=== PATIENT | male | born 1975 | race Caucasian/White ===

== ENCOUNTER 2018-07-22 13:52 | Emergency (ER) | payer OTHER ==
[~2018-07-22] VITALS: Ht 175.3 cm; Wt 120.2 kg
[~2018-07-22 13:52] MED LIST: CARV3.122 PO; HYDR25TA9 PO; LISI-130 PO; LISI30TA4 PO
[2018-07-22 15:05] VITALS: BP 168/111
[2018-07-22] MEDS ORDERED: METH4TAB2 PO (15:23)
[2018-07-22] MEDS ORDERED: CYCL10TA2 PO (15:23)
[2018-07-22] MEDS ORDERED: DICL50TA4 PO (15:23)
--- NOTE | 2018-07-22 15:24 | PHYS DOC ---
Past Medical History Past Medical History: Hypertension Past Surgical History: Other Additional Past Surgical Histo: Tumor removed form L)chest. Alcohol Use: None Drug Use: None Adult General Chief Complaint Chief Complaint: BACK PAIN OR INJURY HPI HPI Patient is a 43 year old male with history of hypertension who presents today complaining of 7 out of 10 left low back pain radiating to the left lower extremity that began yesterday. He states he was helping carrying a door when the person who was carrying the door with him late go, he states he twisted his back in the process. Patient denies falling. Denies any loss of bowel bladder function, denies any numbness or tingling to bilateral lower extremities. Review of Systems Review of Systems Constitutional: Denies fever or chills [] GI: Denies abdominal pain, nausea, vomiting, bloody stools or diarrhea [] : Denies dysuria or hematuria [] Musculoskeletal: Reports left low back pain radiating to the left lower extremity Integument: Denies rash or skin lesions [] Neurologic: Denies headache, focal weakness or sensory changes [] All other systems were reviewed and found to be within normal limits, except as documented in this note. Current Medications Current Medications Current Medications Medications (Trade) Dose Ordered Sig/Jennifer Start Time Stop Time Status Last Admin Dose Admin Dexamethasone Sodium Phosphate (Decadron) 10 mg 1X ONCE 07/22/18 15:15 07/22/18 15:17 DC 07/22/18 15:35 10 MG Ketorolac Tromethamine (Toradol Im) 60 mg 1X ONCE 07/22/18 15:15 07/22/18 15:17 DC 07/22/18 15:34 60 MG Allergies Allergies Allergies Coded Allergies Type Severity Reaction Last Updated Verified Penicillins Allergy Intermediate Rash 11/26/16 Yes Physical Exam Physical Exam Constitutional: Well developed, well nourished, no acute distress, non-toxic appearance. [] Abdomen: Bowel sounds normal, soft, no tenderness, no masses, no pulsatile masses. [] Skin: Warm, dry, no erythema, no rash. [] Back: Diffuse paraspinal muscle tenderness the left lumbar spine, no midline lumbar spine tenderness, positive straight leg raise left side, no CVA tenderness. [] Extremities: No tenderness, no cyanosis, no clubbing, ROM intact, no edema. [] Neurologic: Alert and oriented X 3, normal motor function, normal sensory function, no focal deficits noted. [] Psychologic: Affect normal, judgement normal, mood normal. [] Current Patient Data Vital Signs Vital Signs Date Time Temp Pulse Resp B/P (MAP) Pulse Ox O2 Delivery O2 Flow Rate FiO2 07/22/18 15:05 97.8 89 168/111 (130) 96 Room Air 97.8 EKG EKG [] Radiology/Procedures Radiology/Procedures [] Course & Med Decision Making Course & Med Decision Making Pertinent Labs and Imaging studies reviewed. (See chart for details) This is a 43-year-old male patient presenting to the ED today with muscle strain that occurred yesterday while lifting a door. Discussed with patient benefits and risk of the lumbar spine x-rays. We both agreed he does not need any imaging today. Discharged with diclofenac, Flexeril and Medrol Dosepak. Follow-up with PCP in 1-2 weeks. Blood pressure was 168/111, patient states he has history of hypertension and took his medications this morning including lisinopril 40 mg and Norvasc. He does not have any cardiac or neurological symptoms. Recommended he rechecks his blood pressure when he gets at home. He' ll be given pain medicines in the Ed and blood pressure will be rechecked in the ED. Patient has no cauda equina syndrome symptoms. Will be discharged to follow-up with the PCP. Staff Physician Addendum: I was working in the ER during the course of this patient's visit. I was available for consultation as needed, but I was not directly involved in the care of this patient. Dragon Disclaimer Dragon Disclaimer This electronic medical record was generated, in whole or in part, using a voice recognition dictation system. Departure Departure Impression: Primary Impression: Acute lumbosacral myofascial strain Additional Impression: Hypertension Disposition: HOME, SELF-CARE Condition: STABLE Referrals: SURESH BLAIR MD (PCP) Follow-up with your doctor in one week Patient Instructions: Hypertension, Lumbosacral Strain Additional Instructions: You were evaluated in the emergency room for muscle strain. Please take the prescribed medications as ordered. Do not drive or operate machinery on the cyclobenzaprine. Follow-up with your doctor in 1-2 weeks. Your blood pressure was also high. Ensure you are taking your medicines and follow-up with your doctor. Scripts Diclofenac Sodium (DICLOFENAC SODIUM) 50 Mg Tablet.dr 1 TAB PO BID, #20 TAB 0 Refills Prov: JENNIFERSTEVEN SAUNDERS 07/22/18 Cyclobenzaprine Hcl (CYCLOBENZAPRINE HCL) 10 Mg Tablet 1 TAB PO TID, #30 TAB Prov: BENIGNOYayaSTEVEN APRN 07/22/18 Methylprednisolone (MEDROL) 4 Mg Tab.ds.pk 1 PKG PO UD, #1 PKG Prov: STEVEN RODRIUGEZ APRN 07/22/18 Problem Qualifiers Primary Impression: Acute lumbosacral myofascial strain Encounter type: initial encounter Qualified Codes: S39.012A - Strain of muscle, fascia and tendon of lower back, initial encounter Additional Impression: Hypertension Hypertension type: unspecified Qualified Codes: I10 - Essential (primary) hypertension STEVEN RODRIGUEZ APRN Jul 22, 2018 15:24 AURORA ADAMSON MD Jul 22, 2018 16:30
[2018-07-22] MEDS: KETOROLAC 60 MG/2 ML INJ. IM ONE (15:34)
[2018-07-22] MEDS: DEXAMETHASONE SOD PHOS 20 MG/5 ML VIAL. IM ONE (15:35)
== END 2018-07-22 15:55 | disposition home or self-care (01) ==
LOC: ER 13:52
DX: S39.012A Strain of muscle, fascia and tendon of lower back, initial encounter (principal); I10 Essential (primary) hypertension; Z88.0 Allergy status to penicillin; X50.9XXA Other and unspecified overexertion or strenuous movements or postures, initial encounter; Y93.89 Activity, other specified; Y92.89 Other specified places as the place of occurrence of the external cause; Y99.8 Other external cause status
CPT/HCPCS: 96372; 99284; J1100; J1885

== ENCOUNTER 2019-04-09 10:15 | Emergency (ER) | payer BC, OTHER ==
[~2019-04-09] VITALS: Ht 175.3 cm; Wt 113.4 kg
[~2019-04-09 10:15] MED LIST changes: +CARV3.1210 PO; -CARV3.122 PO; +CYCL10TA2 PO; +DICL50TA4 PO; +HYDR-2145 PO; -HYDR25TA9 PO; +METH4TAB2 PO
--- NOTE | 2019-04-09 11:11 | PHYS DOC ---
Past Medical History Past Medical History: Hypertension Past Surgical History: Other Additional Past Surgical Histo: Tumor removed form L)chest. Alcohol Use: None Drug Use: None Adult General Chief Complaint Chief Complaint: CHEST PAIN HPI HPI Patient is a 43 year old male who presents with complaining of chest pain. Patient complaining of nonexertional substernal pressure pain with radiation to left shoulder that started about 2 hours prior to arrival while he was sitting at his work as a constant pain and associated with shortness of breath without nausea, dizziness, palpitation, focal neuro deficit. Patient stated the pain was 5/10 and without taking any medication decreased to 4/10. Patient states he had episodes of the same pain 2 years and 1 year ago and was admitted at Hospital w ith negative workup. Patient has history of hypertension and family history of coronary artery disease without other cardiac risk factors. Review of Systems Review of Systems Constitutional: Denies fever or chills [] Eyes: Denies change in visual acuity, redness, or eye pain [] HENT: Denies nasal congestion or sore throat [] Respiratory: Denies cough, reports shortness of breath [] Cardiovascular: No additional information not addressed in HPI [] GI: Denies abdominal pain, nausea, vomiting, bloody stools or diarrhea [] : Denies dysuria or hematuria [] Musculoskeletal: Denies back pain or joint pain [] Integument: Denies rash or skin lesions [] Neurologic: Denies headache, focal weakness or sensory changes [] Endocrine: Denies polyuria or polydipsia [] All other systems were reviewed and found to be within normal limits, except as documented in this note. Current Medications Current Medications Current Medications Medications (Trade) Dose Ordered Sig/Jennifer Start Time Stop Time Status Last Admin Dose Admin Aspirin (Children'S Aspirin) 324 mg 1X ONCE 04/09/19 11:15 04/09/19 11:16 DC 04/09/19 11:38 324 MG Nitroglycerin (Nitrostat) 0.4 mg PRN Q5MIN PRN 04/09/19 11:15 04/10/19 11:14 04/09/19 11:39 0.4 MG Allergies Allergies Allergies Coded Allergies Type Severity Reaction Last Updated Verified Penicillins Allergy Intermediate Rash 11/26/16 Yes Physical Exam Physical Exam Constitutional: Well developed, well nourished, mild distress, non-toxic appearance. [] HENT: Normocephalic, atraumatic, oropharynx moist. Eyes: PERRLA, EOMI, conjunctiva normal, no discharge. [] Neck: Normal range of motion, no tenderness, supple, no stridor. [] Cardiovascular:Heart rate regular rhythm, no murmur [] Lungs & Thorax: Bilateral breath sounds clear to auscultation [] Abdomen: Bowel sounds normal, soft, no tenderness, no masses, no pulsatile masses. [] Skin: Warm, dry, no erythema, no rash. [] Back: No tenderness, no CVA tenderness. [] Extremities: No tenderness, no cyanosis, no clubbing, ROM intact, no edema. [] Neurologic: Alert and oriented X 3, normal motor function, normal sensory function, no focal deficits noted. [] Psychologic: Affect normal, judgement normal, mood normal. [] Current Patient Data Vital Signs Vital Signs Date Time Temp Pulse Resp B/P (MAP) Pulse Ox O2 Delivery O2 Flow Rate FiO2 04/09/19 11:39 74 144/89 04/09/19 10:25 98.1 18 98 Room Air 98.1 Lab Values Laboratory Tests Test 04/09/19 10:30 04/09/19 13:30 White Blood Count 8.5 x10^3/uL (4.0-11.0) Red Blood Count 5.20 x10^6/uL (4.30-5.70) Hemoglobin 14.6 g/dL (13.0-17.5) Hematocrit 44.9 % (39.0-53.0) Mean Corpuscular Volume 86 fL (79-100) Mean Corpuscular Hemoglobin 28 pg (25-35) Mean Corpuscular Hemoglobin Concent 33 g/dL (31-37) Red Cell Distribution Width 13.2 % (11.5-14.5) Platelet Count 280 x10^3/uL (140-400) Neutrophils (%) (Auto) 67 % (31-73) Lymphocytes (%) (Auto) 23 % (24-48) L Monocytes (%) (Auto) 8 % (0-9) Eosinophils (%) (Auto) 2 % (0-3) Basophils (%) (Auto) 1 % (0-3) Neutrophils # (Auto) 5.6 x10^3uL (1.8-7.7) Lymphocytes # (Auto) 1.9 x10^3/uL (1.0-4.8) Monocytes # (Auto) 0.7 x10^3/uL (0.0-1.1) Eosinophils # (Auto) 0.1 x10^3/uL (0.0-0.7) Basophils # (Auto) 0.1 x10^3/uL (0.0-0.2) Sodium Level 141 mmol/L (136-145) Potassium Level 3.4 mmol/L (3.5-5.1) L Chloride Level 104 mmol/L (98-107) Carbon Dioxide Level 26 mmol/L (21-32) Anion Gap 11 (6-14) Blood Urea Nitrogen 19 mg/dL (8-26) Creatinine 1.1 mg/dL (0.7-1.3) Estimated GFR (Cockcroft-Gault) 72.7 BUN/Creatinine Ratio 17 (6-20) Glucose Level 116 mg/dL (70-99) H Calcium Level 9.4 mg/dL (8.5-10.1) Magnesium Level 2.2 mg/dL (1.8-2.4) Total Bilirubin 0.5 mg/dL (0.2-1.0) Aspartate Amino Transferase (AST) 22 U/L (15-37) Alanine Aminotransferase (ALT) 50 U/L (16-63) Alkaline Phosphatase 79 U/L (46-116) Creatine Kinase 137 U/L (39-308) Troponin I Quantitative < 0.017 ng/mL (0.000-0.055) < 0.017 ng/mL (0.000-0.055) BH-Lqq-J-Type Natriuretic Peptide 11 pg/mL (0-124) Total Protein 7.6 g/dL (6.4-8.2) Albumin 4.1 g/dL (3.4-5.0) Albumin/Globulin Ratio 1.2 (1.0-1.7) Lipase 94 U/L (73-393) Laboratory Tests 04/09/19 10:30 Laboratory Tests 04/09/19 10:30 EKG EKG EKG Interpreted by me. EKG at 1026 showed normal sinus rhythm at rate of 85, normal UT and QT intervals, no acute ST and T-wave abnormalities. Radiology/Procedures Radiology/Procedures [facility] [address] [place] [address] IMAGING REPORT Signed PATIENT: YUN GONSALVES ACCOUNT: [id number] : 1975 LOCATION: ER AGE: 43 SEX: M EXAM STATUS: REG ER ORD. PHYSICIAN: ERIBERTO ORTIZ MD REASON: chest pain PROCEDURE: CHEST PA & LATERAL CHEST PA LATERAL History: Chest pain Comparison: 09/19/2016 Findings: 2 views of the chest are submitted. There is no infiltrate, pneumothorax, or effusion. The cardiac silhouette is within normal limits in size. There is again small nodular opacity of the mid to superior right hemithorax not convincingly changed, may be granuloma. Impression: 1. There is no radiographic evidence of acute cardiopulmonary disease. Electronically signed by: Suresh Malcolm MD (04/09/2019 11:34 AM) [id number] DICTATED and SIGNED BY: SURESH MALCOLM MD DATE: 04/09/19 1134 Course & Med Decision Making Course & Med Decision Making Pertinent Labs and Imaging studies reviewed. (See chart for details) Evaluation of patient in ER showed 43-year-old male patient with history of hypertension and complaining of chest pain. Patient had unremarkable labs and EKG and 2 sets of cardiac enzymes. Patient did not want hospitalization and wants to follow up as outpatient with his primary care physician. Patient was advised about needs for follow-up with the his primary care physician regarding more cardiac evaluation. Dragon Disclaimer Dragon Disclaimer This electronic medical record was generated, in whole or in part, using a voice recognition dictation system. Departure Departure Impression: Primary Impression: Chest pain Additional Impression: Hypokalemia Disposition: 01 HOME, SELF-CARE (at 1426) Condition: IMPROVED Referrals: SURESH BLAIR MD (PCP) Patient Instructions: Chest Pain (Nonspecific), Hypokalemia Additional Instructions: Follow-up with your primary care physician in 2-3 days for cardiac evaluation Return to ER if not getting better Scripts Naproxen (NAPROSYN) 500 Mg Tablet 1 TAB PO BID for pain, #20 TAB Prov: ERIBERTO ORTIZ MD 04/09/19 Problem Qualifiers Primary Impression: Chest pain Chest pain type: unspecified Qualified Codes: R07.9 - Chest pain, unspecified ERIBERTO ORTIZ MD April 09, 2019 11:11
[2019-04-09 11:15] LABS: BASO # 0.1 x10^3/uL (0.0-0.2); BASO % 1 % (0-3); EOS # 0.1 x10^3/uL (0.0-0.7); EOS % 2 % (0-3); HEMATOCRIT 44.9 % (39.0-53.0); HEMOGLOBIN 14.6 g/dL (13.0-17.5); LYMPH # 1.9 x10^3/uL (1.0-4.8); LYMPH % 23 % (24-48); MEAN CORPUSCULAR HEMOGLOBIN 28 pg (25-35); MEAN CORPUSCULAR HGB CONC 33 g/dL (31-37); MEAN CORPUSCULAR VOLUME 86 fL (79-100); MONO # 0.7 x10^3/uL (0.0-1.1); MONO % 8 % (0-9); NEUT # 5.6 x10^3uL (1.8-7.7); NEUT % 67 % (31-73); PLATELET COUNT 280 x10^3/uL (140-400); RED CELL DISTRIBUTION WIDTH 13.2 % (11.5-14.5); WHITE BLOOD COUNT 8.5 x10^3/uL (4.0-11.0)
[2019-04-09] MEDS ORDERED: ASPIRIN CHEWABLE 81 MG TABLET. PO ONE (11:15)
[2019-04-09] MEDS ORDERED: NITROGLYCERIN SUBLINGUAL 0.4 MG BOTTLE OF 25. SL PRN (11:15)
[2019-04-09 11:25] LABS: CALCIUM 9.4 mg/dL (8.5-10.1); CREATININE 1.1 mg/dL (0.7-1.3); GFR 72.7; POTASSIUM 3.4 mmol/L (3.5-5.1)
[2019-04-09 11:31] LABS: ALBUMIN 4.1 g/dL (3.4-5.0); ALBUMIN/GLOBULIN RATIO 1.2 (1.0-1.7); MAGNESIUM 2.2 mg/dL (1.8-2.4); TOTAL BILIRUBIN 0.5 mg/dL (0.2-1.0); TOTAL PROTEIN 7.6 g/dL (6.4-8.2)
--- NOTE | 2019-04-09 11:37 | RAD ---
CHEST PA LATERAL History: Chest pain Comparison: 09/19/2016 Findings: 2 views of the chest are submitted. There is no infiltrate, pneumothorax, or effusion. The cardiac silhouette is within normal limits in size. There is again small nodular opacity of the mid to superior right hemithorax not convincingly changed, may be granuloma. Impression: 1. There is no radiographic evidence of acute cardiopulmonary disease. Electronically signed by: Jose Malcolm MD (04/09/2019 11:34 AM) [id number]
--- NOTE | 2019-04-09 12:23 | EKG ---
[facility] [address] [place] [address] Test Date: 2019-04-09 Test Time: 10:26:26 Pat Name: YUN GONSALVES Department: Room: Gender: M [employer]: : 1975 Requested By: ERIBERTO ORTIZ Order Number: [id number] Reading MD: Adiel Cervantes Measurements Intervals [place] Rate: 85 P: 34 VT: 160 QRS: 4 QRSD: 96 T: 7 QT: 378 QTc: 450 Interpretive Statements SINUS RHYTHM Electronically Signed On 04-30-2019 12:28:43 CDT by Adiel Cervantes
[2019-04-09] MEDS ORDERED: NAPR-683 PO (14:28)
[2019-04-09 14:33] VITALS: BP 125/78
== END 2019-04-09 14:35 | disposition home or self-care (01) ==
LOC: ER 10:15
DX: R07.89 Other chest pain (principal); E87.6 Hypokalemia; I10 Essential (primary) hypertension; R06.02 Shortness of breath; Z79.82 Long term (current) use of aspirin; Z88.0 Allergy status to penicillin
CPT/HCPCS: 36415; 71046; 80053; 82550; 83690; 83735; 83880; 84484; 85025; 93005; 99285-25